=== PATIENT | male | born 1970 | race African-American/Black ===

== ENCOUNTER 2023-10-01 04:06 | Emergency (ER) | payer MEDICAID, OTHER ==
[~2023-10-01] VITALS: Ht 175.3 cm; Wt 60.6 kg
[2023-10-01 04:10] VITALS: TEMP 98.5; O2SAT 98
[2023-10-01] MEDS ORDERED: ONDANSETRON HCL 4MG/2ML INJ IV STA (04:19)
[2023-10-01] MEDS ORDERED: MORPHINE SULFATE 4 MG/ML CPJ (NOT FOR IM USE) IV ONE (04:30)
[2023-10-01 04:52] LABS: BASOPHILS % 1.2 % (0.0-2.0); EOSINOPHILS % 8.3 % (0.0-5.0); HEMATOCRIT. 36.9 % (42.0-52.0); LYMPHOCYTES % 14.2 % (20.0-50.0); MEAN CORPUSCULAR HEMOGLOBIN 26.2 pg (28.0-32.0); MEAN CORPUSCULAR HGB CONC 32.5 g/dL (31.0-37.0); MEAN CORPUSCULAR VOLUME 80.6 fL (80.0-94.0); MEAN PLATELET VOLUME 7.5 fl (7.4-10.4); MONOCYTES % 6.7 % (2.0-8.0); NEUTROPHILS % 69.6 % (40.0-76.0); PLATELET 266 x1000/uL (130-400); RED BLOOD CELL COUNT 4.58 mill/uL (4.7-6.1); RED CELL DISTRIBUTION WIDTH 25.1 % (11.6-14.6)
[2023-10-01 04:53] LABS: ADD RBC MORPHOLOGY YES; DIFFERENTIAL COMMENT 1
[2023-10-01 05:12] LABS: ANISOCYTOSIS 4+; PLATELET ESTIMATE NORMAL; TARGET CELLS 1+
[2023-10-01 05:34] LABS: ALANINE AMINOTRANSFERASE 8 IU/L (10-49); ALBUMIN 4.2 g/dL (3.2-4.8); ASPARTATE AMINOTRANSFERASE 16 IU/L (<34); BILIRUBIN TOTAL 0.2 mg/dL (0.1-1.0); CALCIUM 8.7 mg/dL (8.7-10.4); CARBON DIOXIDE 28 mEq/L (21-32); CHLORIDE 95 mEq/L (98-107); GLUCOSE 83 mg/dL (70-105); POTASSIUM 4.9 mEq/L (3.5-5.1); PROTEIN TOTAL 8.7 g/dL (6.0-8.3); SODIUM 137 mEq/L (136-145); TROPONIN I HIGH SENSITIVITY 19 ng/L (3.0-53); UREA NITROGEN BLOOD 57 mg/dL (9-23)
[2023-10-01 06:06] LABS: CREATININE 5.9 mg/dL (0.6-1.3)
[2023-10-01] MEDS ORDERED: IOHEXOL-350 100 ML BOTTLE ONE (06:06)
[2023-10-01] MEDS ORDERED: ONDANSETRON HCL 4MG/2ML INJ IV NR (06:30)
[2023-10-01] MEDS ORDERED: MORPHINE SULFATE 4 MG/ML CPJ (NOT FOR IM USE) IV NR (07:00)
[2023-10-01] MEDS ORDERED: ASPIRIN 325MG EC TABLET PO ONE (07:00)
[2023-10-01] MEDS ORDERED: ASPIRIN 325MG EC TABLET PO NR (09:16)
[2023-10-01] MEDS ORDERED: ASPIRIN 325MG TABLET PO NR (09:17)
[2023-10-01 09:27] LABS: ETHANOL BLOOD < 10 mg/dL (<10)
[2023-10-01 09:36] LABS: TROPONIN I HIGH SENSITIVITY 24 ng/L (3.0-53)
[2023-10-01 09:37] VITALS: BP 142/70; PULSE 81; RESP 23
== END 2023-10-01 09:59 | disposition short-term general hospital (02) ==
LOC: ER 04:06
DX: I63.9 Cerebral infarction, unspecified (principal); I10 Essential (primary) hypertension
CPT/HCPCS: 80053; 80320; 83880; 83690; 85025; 84484; 36415; 71045; 70496; 70498; 70450; 74176; 93005; 96374; 96375; 99291; Q9967; J2405; J2270; Z7610 ×4; G0480